=== PATIENT | female | born 1975 | race Caucasian/White ===

== ENCOUNTER 2017-12-15 00:36 | Emergency (ER) | payer SELFPAY ==
[~2017-12-15] VITALS: Ht 165.1 cm; Wt 162.0 kg
[~2017-12-15 00:36] MED LIST: AMOXICILLIN500 MG PO; CEPHALEXIN500 MG OR; CIPRO500 MG PO; CIPRODEX1 ML AU; CIPROFLOXACN500 MG PO; FLONASE NASAL50 MCG; NO MEDS; ONDANSETRON4 MG PO
[2017-12-15 01:18] LABS: INFLUENZA A NONE DETECTED (NONE DETECT); INFLUENZA B POSITIVE (NONE DETECT)
[2017-12-15] MEDS ORDERED: ROBITUSSIN AC10 ML PO (01:26)
[2017-12-15] MEDS ORDERED: TAM75CAP PO (01:26)
[2017-12-15] MEDS ORDERED: AMOXICILLIN500 MG PO (01:26)
[2017-12-15 01:48] VITALS: BP 146/99
== END 2017-12-15 01:45 | disposition home or self-care (01) | DRG 195 ==
LOC: ED 00:36
PROVIDERS: Emergency Medicine
DX: J10.1 Influenza due to other identified influenza virus with other respiratory manifestations (principal); J02.0 Streptococcal pharyngitis; R50.9 Fever, unspecified; R05 Cough

== ENCOUNTER 2018-09-16 18:57 | Emergency (ER) | payer OTHER ==
[~2018-09-16] VITALS: Ht 165.1 cm; Wt 156.0 kg
[~2018-09-16 18:57] MED LIST changes: +ROBITUSSIN AC10 ML PO; +TAM75CAP PO
[2018-09-16 20:44] LABS: IMMATURE GRANULOCYTES 2.2 % (0.0-5.0); MEAN CORPUSCULAR HGB 26.4 pG CALC (26.0-32.0); MEAN CORPUSCULAR HGB CONC 30.8 g/L CALC (32.0-36.0); NEUT# 5.95 thou/uL (2.00-7.15); RED BLOOD COUNT 4.7 mill/uL (4.20-5.60); RED CELL DISTRI WIDTH 14.7 % (11.5-15.5)
[2018-09-16 20:46] LABS: HEMATOCRIT 40.2 % (37.0-47.0); HEMOGLOBIN 12.4 g/dl (12.0-16.0); MEAN CELL VOLUME 85.5 fL CALC (80.0-100.0)
[2018-09-16 20:48] LABS: URINE BILIRUBIN - DIPSTICK NEGATIVE (NEGATIVE); URINE BLOOD DIPSTICK NEGATIVE (NEGATIVE); URINE COLOR YELLOW; URINE GLUCOSE - DIPSTICK NEGATIVE (NEGATIVE); URINE KETONE NEGATIVE (NEGATIVE); URINE LEUK ESTERASE NEGATIVE (NEGATIVE); URINE NITRITE - DIPSTICK NEGATIVE (Negative); URINE PROTEIN - DIPSTICK NEGATIVE (NEG-TRACE); URINE SPECIFIC GRAVITY <=1.005; URINE UROBILINOGEN - DIPSTICK 0.2 E.U./dL (0.2)
[2018-09-16 20:50] LABS: BARBITURATES NEGATIVE (NEGATIVE); COCAINE NEGATIVE (NEGATIVE); METHADONE NEGATIVE (NEGATIVE); OXCYCODONE NEGATIVE (NEGATIVE); TETRAHYDROCANNABIONOL NEGATIVE (NEGATIVE); TRICYLIC ANTIDEPRESSANTS NEGATIVE (NEGATIVE); URINE CLARITY CLEAR
[2018-09-16 20:56] LABS: ALBUMIN 3.8 g/dL (3.2-5.0); ALKALINE PHOSPHATASE 127 u/l (38-126); ANION GAP 11 (6-22 (CALC)); BILIRUBIN, TOTAL 0.2 mg/dL (0.0-1.4); BUN 16 mg/dL (7-17); BUN/CREATININE RATIO 20 (12-20 (CALC)); CARBON DIOXIDE 29 mmol/l (22-30); CHLORIDE 106 mmol/l (95-108); CREATININE 0.8 mg/dL (0.5-1.0); GFR > 60 ML/MIN (>=60 (CALC)); GFR FOR AFR.AMER. > 60 ML/MIN (>=60 (CALC)); POTASSIUM 4.2 mmol/l (3.5-5.1); SGOT/AST 26 u/l (14-36); SODIUM 141 mmol/l (137-146); TOTAL PROTEIN 7.5 g/dL (6.3-8.2)
[2018-09-16] MEDS ORDERED: ANTIVERT PO (21:04)
[2018-09-16 21:08] LABS: MYOGLOBIN 17 ng/mL (0 - 62)
[2018-09-16 21:20] VITALS: BP 126/74
== END 2018-09-16 21:42 | disposition home or self-care (01) | DRG 149 ==
LOC: ED 18:57
PROVIDERS: Emergency Medicine
DX: R42 Dizziness and giddiness (principal); V49.49XD Driver injured in collision with other motor vehicles in traffic accident, subsequent encounter

== ENCOUNTER 2019-11-01 21:32 | Emergency (ER) | payer SELFPAY ==
[~2019-11-01] VITALS: Ht 165.1 cm; Wt 165.9 kg
[~2019-11-01 21:32] MED LIST changes: +ANTIVERT PO
[2019-11-01 23:23] LABS: HEMATOCRIT 38.2 % (37.0-47.0); IMMATURE GRANULOCYTES 1.8 % (0.0-5.0); MEAN CELL VOLUME 82.9 fL CALC (80.0-100.0); MEAN CORPUSCULAR HGB CONC 31.4 g/L CALC (32.0-36.0); NEUT# 6.26 thou/uL (2.00-7.15); RED BLOOD COUNT 4.61 mill/uL (4.20-5.60); RED CELL DISTRI WIDTH 14.7 % (11.5-15.5)
[2019-11-02] MEDS ORDERED: TAM75CAP PO (00:17)
[2019-11-02 00:35] VITALS: BP 137/82
== END 2019-11-02 00:35 | disposition home or self-care (01) | DRG 153 ==
LOC: ED 21:32
PROVIDERS: Family Medicine
DX: J11.1 Influenza due to unidentified influenza virus with other respiratory manifestations (principal)

== ENCOUNTER 2020-09-14 12:52 | Emergency (ER) | payer SELFPAY ==
[~2020-09-14] VITALS: Ht 165.1 cm; Wt 159.0 kg
[2020-09-14] MEDS ORDERED: AMOX/K CLAV875 M1 PO (13:37)
[2020-09-14 13:50] VITALS: BP 135/76
== END 2020-09-14 14:19 | disposition home or self-care (01) | DRG 605 ==
LOC: ED 12:52
DX: S61.052A Open bite of left thumb without damage to nail, initial encounter (principal); S60.811A Abrasion of right wrist, initial encounter; W55.01XA Bitten by cat, initial encounter

== ENCOUNTER 2020-09-21 10:17 | Emergency (ER) | payer SELFPAY ==
[~2020-09-21] VITALS: Ht 165.1 cm; Wt 158.1 kg
[2020-09-21 10:17] VITALS: BP 151/81
[~2020-09-21 10:17] MED LIST changes: +AMOX/K CLAV875 M1 PO
[2020-09-21] MEDS ORDERED: ALL DAY10 MG PO (10:51)
[2020-09-21] MEDS ORDERED: HYDROCORTISONE12 TOP (10:51)
[2020-09-21] MEDS ORDERED: ZPAK PO (10:54)
== END 2020-09-21 11:01 | disposition home or self-care (01) | DRG 607 ==
LOC: ED 10:17
DX: L20.9 Atopic dermatitis, unspecified (principal)

== ENCOUNTER 2022-12-24 13:31 | Emergency (ER) | payer SELFPAY ==
[~2022-12-24] VITALS: Ht 165.1 cm; Wt 158.8 kg
[~2022-12-24 13:31] MED LIST changes: +ALL DAY10 MG PO; +HYDROCORTISONE12 TOP; +ZPAK PO
[2022-12-24 13:38] VITALS: BP 145/76
[2022-12-24 14:31] VITALS: BP 123/69
[2022-12-24 14:32] LABS: BASO% 0.5 % (0-3); EOS% 1.3 % (0-8); IMMATURE GRANULOCYTES 1.5 % (0.0-5.0); LYMPH% 27.4 % (15-41); MEAN CORPUSCULAR HGB 28.9 pG CALC (26.0-32.0); MEAN CORPUSCULAR HGB CONC 31.9 g/dL CAL (32.0-36.0); MONO% 5.3 % (2-13); NEUT# 6.23 thou/uL (2.00-7.15); RED BLOOD COUNT 4.99 mill/uL (4.20-5.60); RED CELL DISTRI WIDTH 13.1 % (11.5-15.5)
[2022-12-24 14:32] LABS: URINE BILIRUBIN - DIPSTICK NEGATIVE (NEGATIVE); URINE BLOOD DIPSTICK NEGATIVE (NEGATIVE); URINE COLOR YELLOW; URINE GLUCOSE - DIPSTICK NEGATIVE (NEGATIVE); URINE KETONE NEGATIVE (NEGATIVE); URINE LEUK ESTERASE NEGATIVE (NEGATIVE); URINE PH 5.5 (4.5-8.0); URINE PROTEIN - DIPSTICK NEGATIVE (NEG-TRACE); URINE SPECIFIC GRAVITY >=1.030; URINE UROBILINOGEN - DIPSTICK 0.2 E.U./dL (0.2)
[2022-12-24 14:35] LABS: HEMATOCRIT 45.2 % (37.0-47.0); HEMOGLOBIN 14.4 g/dl (12.0-16.0); MEAN CELL VOLUME 90.6 fL CALC (80.0-100.0)
[2022-12-24 14:41] LABS: ALBUMIN 4.3 g/dL (3.2-5.0); ALKALINE PHOSPHATASE 115 u/l (38-126); ANION GAP 10 (6-22 (CALC)); BUN 15 mg/dL (7-17); BUN/CREATININE RATIO 19 (12-20 (CALC)); CARBON DIOXIDE 31 mmol/l (22-30); CHLORIDE 103 mmol/l (95-108); CREATININE 0.8 mg/dL (0.5-1.0); GFR FOR AFR.AMER. > 60 ML/MIN (>=60 (CALC)); GFR OTHER RACES > 60 ML/MIN (>=60 (CALC)); POTASSIUM 4.1 mmol/l (3.5-5.1); SGOT/AST 32 u/l (14-36); SODIUM 140 mmol/l (137-146); TOTAL PROTEIN 7.9 g/dL (6.3-8.2)
[2022-12-24 15:05] LABS: URINE NITRITE - DIPSTICK NEGATIVE (Negative)
[2022-12-24 15:05] LABS: BILIRUBIN, TOTAL 0.3 mg/dL (0.02-1.3)
[2022-12-24] MEDS ORDERED: FLEXERIL5 M1 PO (15:19)
[2022-12-24] MEDS ORDERED: IBUPROFEN600 MG PO (15:20)
[2022-12-24 15:22] VITALS: BP 123/69
== END 2022-12-24 15:28 | disposition home or self-care (01) | DRG 552 ==
LOC: ED 13:31
PROVIDERS: Family Medicine
DX: M54.9 Dorsalgia, unspecified (principal); R10.31 Right lower quadrant pain

== ENCOUNTER 2023-05-05 16:14 | Emergency (ER) | payer OTHER ==
[~2023-05-05] VITALS: Ht 165.1 cm; Wt 149.9 kg
[2023-05-05] VITALS (7 sets, daily range): BP systolic 120–139; BP diastolic 68–94
[~2023-05-05 16:14] MED LIST changes: +FLEXERIL5 M1 PO; +IBUPROFEN600 MG PO
[2023-05-05] MEDS ORDERED: MEDDOSEPAK PO (19:14)
[2023-05-05] MEDS ORDERED: CYCLOBENZAPRINE10 MG PO (19:14)
== END 2023-05-05 19:43 | disposition home or self-care (01) | DRG 556 ==
LOC: ED 16:14
DX: M62.838 Other muscle spasm (principal); V53.5XXA Driver of pick-up truck or van injured in collision with car, pick-up truck or van in traffic accident, initial encounter